=== PATIENT | male | born 1955 | race Caucasian/White ===

== ENCOUNTER 2020-05-23 10:26 | Outpatient (CLI) | payer OTHER ==
[~2020-05-23 10:26] MED LIST: NO HOME MEDS
== END 2020-05-23 23:59 | disposition home or self-care (01) ==
LOC: RAD 10:26
PROVIDERS: ATTEND Orthopaedic Surgery
DX: M17.12 Unilateral primary osteoarthritis, left knee (principal); M25.762 Osteophyte, left knee; M79.89 Other specified soft tissue disorders
CPT/HCPCS: 73564

== ENCOUNTER 2021-10-23 14:24 | Emergency (ER) | payer OTHER ==
[~2021-10-23] VITALS: Ht 180.3 cm; Wt 68.0 kg
[2021-10-23 15:01] VITALS: BP 129/54
[2021-10-23] MEDS ORDERED: PRED5DRO23 LEFTEYE (16:24)
== END 2021-10-23 16:39 | disposition home or self-care (01) ==
LOC: ER 14:24
DX: H57.13 Ocular pain, bilateral (principal); Z76.0 Encounter for issue of repeat prescription
CPT/HCPCS: 99281